=== PATIENT | female | born 1990 | race Hispanic/Latino ===

== ENCOUNTER 2018-12-01 15:54 | Emergency (ER) | payer MEDICAID, OTHER ==
[2018-12-01] MEDS ORDERED: CLINDAMYCIN HCL 150 MG CAP ONE (16:28)
== END 2018-12-01 16:44 | disposition home or self-care (01) ==
LOC: EDH 15:54
DX: A46 Erysipelas (principal)

== ENCOUNTER 2019-02-14 01:37 | Emergency (ER) | payer OTHER | END 2019-02-14 05:43 | disposition home or self-care (01) | LOC: EDH 01:37 | DX: S00.83XA Contusion of other part of head, initial encounter (principal); S60.212A Contusion of left wrist, initial encounter; S50.11XA Contusion of right forearm, initial encounter; R68.84 Jaw pain; Y04.0XXA Assault by unarmed brawl or fight, initial encounter; Y93.89 Activity, other specified; Y92.89 Other specified places as the place of occurrence of the external cause; Y99.8 Other external cause status | CPT/HCPCS: 70450; 70486; 81025 ==

== ENCOUNTER 2021-04-22 23:47 | Emergency (ER) | payer OTHER ==
[~2021-04-22] VITALS: Ht 162.6 cm; Wt 98.0 kg
[2021-04-23 00:30] VITALS: BP 101/62
[2021-04-23] MEDS ORDERED: TETANUS/DIPHTHERIA TOXOID [ADULT] 0.5 ML VIAL IM ONE (01:10)
[2021-04-23] MEDS ORDERED: ONDANSETRON 4MG INJ IVP ONE (01:30)
[2021-04-23] MEDS ORDERED: METOCLOPRAMIDE 10 MG/2 ML VIAL IVP ONE (01:30)
[2021-04-23] MEDS ORDERED: 0.9%NACL 1000ML 1,000 ML IV ONE (01:30)
[2021-04-23] MEDS ORDERED: DIPH,PERTUSS(ACELL),TET VAC/PF 0.5 ML VIAL IM ONE (02:00)
[2021-04-23] MEDS ORDERED: KETOROLAC 30MG VIAL (30MG/ML) IV ONE (02:00)
[2021-04-23] MEDS ORDERED: ONDA4TAB10 PO (02:34)
[2021-04-23] MEDS ORDERED: CYCL10TA7 PO (02:34)
[2021-04-23] MEDS ORDERED: MELO7.5T12 PO (02:34)
[2021-04-23] MEDS ORDERED: METO-296 PO (02:34)
[2021-04-23 02:39] VITALS: BP 106/70
== END 2021-04-23 02:55 | disposition home or self-care (01) ==
LOC: EDH 04-23 00:36
DX: S20.219A Contusion of unspecified front wall of thorax, initial encounter (principal); S30.0XXA Contusion of lower back and pelvis, initial encounter; S50.12XA Contusion of left forearm, initial encounter; S50.11XA Contusion of right forearm, initial encounter; S80.12XA Contusion of left lower leg, initial encounter; S80.11XA Contusion of right lower leg, initial encounter; S00.93XA Contusion of unspecified part of head, initial encounter; R11.2 Nausea with vomiting, unspecified; Z79.899 Other long term (current) drug therapy; Y00.XXXA Assault by blunt object, initial encounter; Y93.89 Activity, other specified; Y92.89 Other specified places as the place of occurrence of the external cause; Y99.8 Other external cause status
CPT/HCPCS: 70450; 81025; 90471; 90714; 96361; 96374; 96375; 99285; J1885; J2405; J2765; J7030

== ENCOUNTER 2022-10-04 01:01 | Emergency (ER) | payer OTHER ==
[~2022-10-04] VITALS: Ht 162.6 cm; Wt 112.0 kg
[~2022-10-04 01:01] MED LIST: CYCL-309 PO; MELO7.5T12 PO; METO-296 PO; ONDA4TAB10 PO
[2022-10-04 01:24] LABS: BASOPHILS % (AUTO) 0.2 % (0.0-5.0); EOSINOPHILS % (AUTO) 1.2 % (0.0-8.0); HEMATOCRIT 35.2 % (36-48); LYMPHOCYTES % (AUTO) 34.5 % (21.0-51.0); MEAN CORPUSCULAR HEMOGLOBIN 29.6 pg (27.0-33.0); MEAN CORPUSCULAR HGB CONC 34.1 g/dL (32.0-36.0); MEAN CORPUSCULAR VOLUME 86.9 fL (79-99); MONOCYTES % (AUTO) 7.9 % (3.0-13.0); PLATELET COUNT (AUTO) 305 K/uL (130-400); RED BLOOD CELL COUNT(AUTO) 4.05 MIL/uL (4.00-5.50); RED CELL DISTRIBUTION WIDTH 12.7 % (11.0-15.5); WHITE BLOOD COUNT (AUTO) 9.1 K/uL (4.8-10.8)
[2022-10-04 01:33] LABS: APPEARANCE,URINE CLOUDY (CLEAR); BILIRUBIN,URINE NEGATIVE (NEGATIVE); COLOR,URINE LIGHT-YELLOW (YELLOW); GLUCOSE, URINE (UA) NEGATIVE (NEGATIVE); KETONES,URINE NEGATIVE (NEGATIVE); LEUKOCYTE ESTERASE ,URINE 25 Leu/uL (NEGATIVE); NITRATE,URINE 2+ (NEGATIVE); OCCULT BLOOD,URINE SMALL (NEGATIVE); PH,URINE 6.5 (5.0-8.0); PROTEIN,URINE 20 mg/dL (NEGATIVE); UROBILINOGEN,URINE 0.2 mg/dL (0.2-1.0)
[2022-10-04 01:37] LABS: CREATININE 0.6 mg/dL (0.5-1.5); POTASSIUM 3.5 mmol/L (3.5-5.1)
[2022-10-04 01:38] LABS: BACTERIA,URINE MOD /HPF (None Seen); MUCUS,URINE RARE LPF (None Seen); SQUAMOUS EPITHELIAL CELL,UR FEW /HPF (0-2)
[2022-10-04 01:39] LABS: HCG,QUALITATIVE URINE NEGATIVE (NEGATIVE)
[2022-10-04 01:42] LABS: AMPHET/METH SCREEN,URINE NEGATIVE (NEGATIVE); BARBITURATE SCREEN, URINE NEGATIVE (NEGATIVE); BENZODIAZEPINES SCREEN,URINE NEGATIVE (NEGATIVE); CANNABINOID SCREEN,URINE NEGATIVE (NEGATIVE); COCAINE SCREEN,URINE NEGATIVE (NEGATIVE); OPIATE SCREEN,URINE NEGATIVE (NEGATIVE); PHENCYCLIDINE SCREEN,URINE NEGATIVE (NEGATIVE)
[2022-10-04 01:43] LABS: ALBUMIN 3.8 g/dL (3.5-5.0); TOTAL PROTEIN, SERUM 7.6 g/dL (6.0-8.3)
[2022-10-04] MEDS ORDERED: FLUT16H NASAL (05:25)
[2022-10-04] MEDS ORDERED: ONDA4TAB10 PO (05:25)
[2022-10-04] MEDS ORDERED: MECL-160 PO (05:25)
[2022-10-04 05:45] VITALS: BP 112/78
== END 2022-10-04 05:52 | disposition home or self-care (01) ==
LOC: EDH 01:01
DX: R07.89 Other chest pain (principal); R42 Dizziness and giddiness; E66.01 Morbid (severe) obesity due to excess calories; Z68.41 Body mass index [BMI] 40.0-44.9, adult
CPT/HCPCS: 36415; 70450; 71045; 80053; 80305; 81001; 81025; 84484; 85025; 87077; 87088; 87186; 93005